=== PATIENT | female | born 1995 | race American Indian/Alaskan Native ===

== ENCOUNTER 2019-01-02 09:07 | Emergency (ER) | payer OTHER ==
[2019-01-02 09:42] VITALS: BP 148/86
--- NOTE | 2019-01-02 11:05 | Emergency Department Report ---
HPI - General Chief Complaint: Headache Time Seen by Provider: 01/02/19 10:38 - HPI HPI: This is a 23-year-old female with no prior medical history who presents to ED complaining of right foot swelling redness and pain. Patient states that she had a tattoo done last Tuesday. Patient states about 34 days ago started to get re.. She denies fevers/chills/nausea vomiting. She also states that she has been given throbbing clot/18 temperature headaches for the past week. His trauma, loss of consciousness or any injuries to the head. She denies blurry vision or visual changes. ED Past Medical Hx - Past Medical History Previous Medical History?: Yes Hx Diabetes: Yes (Pt denies.) - Surgical History Past Surgical History?: Yes Additional Surgical History: cleft pallet,tonsillectomy - Social History Smoking Status: Never Smoker Substance Use Type: None - Medications Home Medications: Home Medications Medication Instructions Recorded Confirmed Last Taken Type Cyclobenzaprine [Flexeril] 10 mg PO QHS PRN #10 tablet 08/14/18 Unknown Rx Ibuprofen [Motrin] 600 mg PO Q8H PRN #20 tablet 08/14/18 Unknown Rx Butalb/Acetamin/Caff 50-325-40 1 tab PO Q8HR PRN #20 tablet 01/02/19 Unknown Rx [Fioricet] Clindamycin [Clindamycin CAP] 300 mg PO Q8H #21 cap 01/02/19 Unknown Rx Ibuprofen [Motrin] 800 mg PO Q8HR #30 tablet 01/02/19 Unknown Rx Neomycin/Bacitracin/Polymyxinb 1 applic TP TID #1 oint...g. 01/02/19 Unknown Rx [Triple Antibiotic Ointment] ED Review of Systems ROS: Stated complaint: RT FOOT SWOLLEN/PAIN Other details as noted in HPI Comment: All other systems reviewed and negative Physical Exam - Physical Exam Vital Signs: Vital Signs 01/02/19 09:41 Temperature 98.4 F Pulse Rate 79 Respiratory 18 Rate Blood Pressure 148/86 [Right] O2 Sat by Pulse 95 Oximetry Physical Exam: GENERAL: Alert and oriented x3, no apparent distress, Normal Gait, atraumatic. HEAD: Head is normocephalic and a-traumatic. Nontender to palpation EYES: Vision is intact. Extra ocular muscles are intact. Pupils are equal, round, and reactive to light and accommodation. EARS: symetrical, atraumatic, non tender, ear canal clear and moderate cerumen, tympanic membrance non inflamed. gross auditory nml bilaterally. NECK: Supple. Non edematous, No carotid bruits. No lymphadenopathy or thyromegaly. No C-spine tenderness LUNGS: Symetrical with respiration, No wheezing, no rales or crackles, CTAB. HEART: S1, S2 present, regular rate and rhythm without murmur, no rubs, no gallops. Non tender to palpation EXTREMITIES/MUSCULOSKELETAL: No cyanosis, clubbing, rash, lesions or edema. Full ROM bilaterally. UE/LE Pulses 2+ bilaterally. LE and UE 5+ strength bilaterally, straight leg raise negative bilaterally Talk to present on the right anterior foot, moderate swelling and redness around the tattoo, some peeling noted. NEUROLOGIC: The patient is cooperative with no focal neurologic deficits. Cranial nerves II through XII are grossly intact. Normal speech. Normal sensation in bilateral upper and lower extremities, No loss of sensation, No facial droop. PSYCHIATRIC: Mood is congruent with affect, denies suicidal or homicidal ideations. SKIN: Warm and dry, No lesions, No ulceration or induration present. ED Course Vital Signs 01/02/19 09:41 Temperature 98.4 F Pulse Rate 79 Respiratory 18 Rate Blood Pressure 148/86 [Right] O2 Sat by Pulse 95 Oximetry ED Medical Decision Making - Medical Decision Making 3-year-old female presents with possible skin tattoo infection of the right foot. Discuss with patient that I'll be discharging her home with some antibiotics topically and orally. Discussed with the patient to keep the area dry as much as she can. Discussed cold compress as needed for swelling. Medicines are normal patient is in no acute distress. Critical care attestation.: If time is entered above; I have spent that time in minutes in the direct care of this critically ill patient, excluding procedure time. ED Disposition Clinical Impression: Cellulitis of foot, right, Headache Disposition: - TO HOME OR SELFCARE Is pt being admited?: No Does the pt Need Aspirin: No Condition: Stable Instructions: Cellulitis (ED), Migraine Headache (ED), Tension Headache (ED), Abrasion (ED) Additional Instructions: Make sure to follow up with the primary care physician as discussed. Take all your medications as you've been prescribed. If you have any worsening symptoms or develop new symptoms please return to ED immediately. Prescriptions: Clindamycin [Clindamycin CAP] 300 mg PO Q8H #21 cap Butalb/Acetamin/Caff 50-325-40 [Fioricet] 1 tab PO Q8HR PRN #20 tablet PRN Reason: Headache Ibuprofen [Motrin] 800 mg PO Q8HR #30 tablet Neomycin/Bacitracin/Polymyxinb [Triple Antibiotic Ointment] 1 applic TP TID #1 oint...g. Referrals: GARY GILLIAM MD [Primary Care Provider] - 3-5 Days Forms: Work/School Release Form(ED) Time of Disposition: 11:07
== END 2019-01-02 11:34 | disposition home or self-care (01) ==
LOC: ED 09:07
DX: L03.115 Cellulitis of right lower limb (principal); R51 Headache; E11.9 Type 2 diabetes mellitus without complications; Z90.89 Acquired absence of other organs
CPT/HCPCS: 99283

== ENCOUNTER 2019-01-15 03:24 | Emergency (ER) | payer OTHER ==
--- NOTE | 2019-01-15 08:24 | Emergency Department Report ---
- General Chief complaint: Extremity Injury, Lower Stated complaint: FOOT PAIN Time Seen by Provider: 01/15/19 08:04 Source: patient Mode of arrival: Ambulatory Limitations: No Limitations - History of Present Illness Initial comments: Patient is a 23-year-old black female who had a tattoo placed on the right dorsum of the foot approximately 3 weeks ago. Patient states that 4 days after the tattoo was placed she started getting some redness surrounding the tattoo. Patient was seen here 2 weeks ago and was started on clindamycin. Patient states that while she was on the antibiotics or redness was subsiding as well as her pain. Patient has been off of antibiotic for approximately week and states that over the last 5-6 days her swelling redness has worsened. Patient denies any fevers chills nausea vomiting. Patient states pain is 8 out of 10 in severity, however she is able to bear weight. - Related Data Previous Rx's Medication Instructions Recorded Last Taken Type Cyclobenzaprine [Flexeril] 10 mg PO QHS PRN #10 tablet 08/14/18 Unknown Rx Ibuprofen [Motrin] 600 mg PO Q8H PRN #20 tablet 08/14/18 Unknown Rx Butalb/Acetamin/Caff 50-325-40 1 tab PO Q8HR PRN #20 tablet 01/02/19 Unknown Rx [Fioricet] Clindamycin [Clindamycin CAP] 300 mg PO Q8H #21 cap 01/02/19 Unknown Rx Ibuprofen [Motrin] 800 mg PO Q8HR #30 tablet 01/02/19 Unknown Rx Neomycin/Bacitracin/Polymyxinb 1 applic TP TID #1 oint...g. 01/02/19 Unknown Rx [Triple Antibiotic Ointment] Amoxicillin/Potassium Clav 1 each PO BID #14 tablet 01/15/19 Unknown Rx [Augmentin 875-125 Tablet] Clindamycin [Clindamycin CAP] 300 mg PO Q8H #21 cap 01/15/19 Unknown Rx HYDROcodone/ACETAMINOPHEN 1 each PO Q6HR PRN #12 tablet 01/15/19 Unknown Rx [Hydrocodone-Acetamin 5-325 mg] Ibuprofen [Ibu] 800 mg PO Q8H PRN #20 tablet 01/15/19 Unknown Rx Allergies Allergy/AdvReac Type Severity Reaction Status Date / Time No Known Allergies Allergy Verified 01/02/19 09:40 Abscess Boil HPI - HPI Chief Complaint: Extremity Injury, Lower Stated Complaint: FOOT PAIN Time Seen by Provider: 01/15/19 08:04 Home Medications: Previous Rx's Medication Instructions Recorded Last Taken Type Cyclobenzaprine [Flexeril] 10 mg PO QHS PRN #10 tablet 08/14/18 Unknown Rx Ibuprofen [Motrin] 600 mg PO Q8H PRN #20 tablet 08/14/18 Unknown Rx Butalb/Acetamin/Caff 50-325-40 1 tab PO Q8HR PRN #20 tablet 01/02/19 Unknown Rx [Fioricet] Clindamycin [Clindamycin CAP] 300 mg PO Q8H #21 cap 01/02/19 Unknown Rx Ibuprofen [Motrin] 800 mg PO Q8HR #30 tablet 01/02/19 Unknown Rx Neomycin/Bacitracin/Polymyxinb 1 applic TP TID #1 oint...g. 01/02/19 Unknown Rx [Triple Antibiotic Ointment] Amoxicillin/Potassium Clav 1 each PO BID #14 tablet 01/15/19 Unknown Rx [Augmentin 875-125 Tablet] Clindamycin [Clindamycin CAP] 300 mg PO Q8H #21 cap 01/15/19 Unknown Rx HYDROcodone/ACETAMINOPHEN 1 each PO Q6HR PRN #12 tablet 01/15/19 Unknown Rx [Hydrocodone-Acetamin 5-325 mg] Ibuprofen [Ibu] 800 mg PO Q8H PRN #20 tablet 01/15/19 Unknown Rx Allergies/Adverse Reactions: Allergies Allergy/AdvReac Type Severity Reaction Status Date / Time No Known Allergies Allergy Verified 01/02/19 09:40 ED Review of Systems ROS: Stated complaint: FOOT PAIN Other details as noted in HPI Comment: All other systems reviewed and negative ED Past Medical Hx - Past Medical History Previous Medical History?: Yes Hx Diabetes: Yes (Not taking meds) - Surgical History Past Surgical History?: Yes Additional Surgical History: cleft pallet,tonsillectomy - Social History Smoking Status: Never Smoker Substance Use Type: None - Medications Home Medications: Home Medications Medication Instructions Recorded Confirmed Last Taken Type Cyclobenzaprine [Flexeril] 10 mg PO QHS PRN #10 tablet 08/14/18 Unknown Rx Ibuprofen [Motrin] 600 mg PO Q8H PRN #20 tablet 08/14/18 Unknown Rx Butalb/Acetamin/Caff 50-325-40 1 tab PO Q8HR PRN #20 tablet 01/02/19 Unknown Rx [Fioricet] Clindamycin [Clindamycin CAP] 300 mg PO Q8H #21 cap 01/02/19 Unknown Rx Ibuprofen [Motrin] 800 mg PO Q8HR #30 tablet 01/02/19 Unknown Rx Neomycin/Bacitracin/Polymyxinb 1 applic TP TID #1 oint...g. 01/02/19 Unknown Rx [Triple Antibiotic Ointment] Amoxicillin/Potassium Clav 1 each PO BID #14 tablet 01/15/19 Unknown Rx [Augmentin 875-125 Tablet] Clindamycin [Clindamycin CAP] 300 mg PO Q8H #21 cap 01/15/19 Unknown Rx HYDROcodone/ACETAMINOPHEN 1 each PO Q6HR PRN #12 tablet 01/15/19 Unknown Rx [Hydrocodone-Acetamin 5-325 mg] Ibuprofen [Ibu] 800 mg PO Q8H PRN #20 tablet 01/15/19 Unknown Rx ED Physical Exam - General Limitations: No Limitations General appearance: alert, in no apparent distress - Head Head exam: Present: atraumatic, normocephalic - Eye Eye exam: Present: normal appearance, PERRL, EOMI - ENT ENT exam: Present: mucous membranes moist - Neck Neck exam: Present: normal inspection - Respiratory Respiratory exam: Present: normal lung sounds bilaterally. Absent: respiratory distress, wheezes, rales, rhonchi - Cardiovascular Cardiovascular Exam: Present: regular rate, normal rhythm. Absent: systolic murmur, diastolic murmur, rubs, gallop - GI/Abdominal GI/Abdominal exam: Present: soft, normal bowel sounds. Absent: distended, tenderness, guarding, rebound - Extremities Exam Extremities exam: Present: normal inspection, other (patient has erythema within and surrounding a large tattoo on the dorsum of the right foot. There is subsequent edema to the foot and ankle. There is no pain in the plantar surface of the foot. She has full range of motion of her toes. Patient has intact dorsalis pedal pulse.) - Back Exam Back exam: Present: normal inspection - Neurological Exam Neurological exam: Present: alert, oriented X3 - Psychiatric Psychiatric exam: Present: normal affect, normal mood - Skin Skin exam: Present: warm, dry, intact, normal color. Absent: rash ED Course Vital Signs 01/15/19 01/15/19 03:27 03:28 Temperature 97.6 F 97.6 F Pulse Rate 86 83 Respiratory 18 18 Rate Blood Pressure 144/77 144/77 O2 Sat by Pulse 98 98 Oximetry ED Medical Decision Making - Medical Decision Making The patient's symptoms were improving on clindamycin the patient be restarted on clindamycin. Because of worry of some resistance patient also be given Augmentin as well. Patient will be followed up with infectious disease as needed. Condition discharge home. Critical care attestation.: If time is entered above; I have spent that time in minutes in the direct care of this critically ill patient, excluding procedure time. ED Disposition Clinical Impression: Cellulitis of foot, right Disposition: DC-01 TO HOME OR SELFCARE Is pt being admited?: No Does the pt Need Aspirin: No Condition: Stable Instructions: Cellulitis (ED) Referrals: JOSE MANUEL ESTRADARYANNEMIFF[facility]OWN MD DELILAH [Primary Care Provider] - 3-5 Days JANETT SINGLETON MD [Staff Physician] - 3-5 Days Time of Disposition: 08:28
[2019-01-15 09:28] VITALS: BP 132/70
== END 2019-01-15 08:51 | disposition home or self-care (01) ==
LOC: ED 03:24
DX: L03.115 Cellulitis of right lower limb (principal); E11.9 Type 2 diabetes mellitus without complications; Z90.89 Acquired absence of other organs; Z98.890 Other specified postprocedural states

== ENCOUNTER 2019-06-28 08:57 | Emergency (ER) | payer OTHER ==
[2019-06-28 09:05] VITALS: BP 153/94
[2019-06-28] MEDS ORDERED: NACL 0.9% 1000 ML 1,000 ML IV ONE ×2 (09:49)
[2019-06-28 10:16] LABS: Basophils % (Auto) 0.5 % (0.0-1.8); Eosinophils # (Auto) 0.1 K/mm3 (0.0-0.4); Hematocrit 46.1 % (30.3-42.9); Hemoglobin 15.8 gm/dl (10.1-14.3); Lymphocytes # (Auto) 2.2 K/mm3 (1.2-5.4); Lymphocytes % (Auto) 31.2 % (13.4-35.0); Mean Corpuscular HGB Conc 34 % (30-34); Mean Corpuscular Volume 93 fl (79-97); Monocytes # (Auto) 0.4 K/mm3 (0.0-0.8); Monocytes % (Auto) 5.7 % (0.0-7.3); Platelet Count 349 K/mm3 (140-440); Red Blood Count 4.94 M/mm3 (3.65-5.03); Red Cell Distribution Width 13.5 % (13.2-15.2)
[2019-06-28 10:31] LABS: BUN/Creatinine Ratio 23; Blood Urea Nitrogen 14 mg/dL (7-17); Calcium 8.8 mg/dL (8.4-10.2); Hemolysis Index 12
[2019-06-28 12:26] LABS: Bilirubin,Urine NEG (Negative); Blood,Urine NEG (Negative); Color,Urine Yellow (Yellow); Protein,Urine <15 mg/dL mg/dL (Negative); Urobilinogen,Urine < 2.0 mg/dL (<2.0)
[2019-06-28 12:29] LABS: HCG Qualitative,Urine Negative (Negative)
[2019-06-28] MEDS ORDERED: TORADOL IV ONE (12:33)
--- NOTE | 2019-06-28 12:42 | Emergency Department Report ---
ED General Adult HPI - General Chief complaint: Hyperglycemia Stated complaint: HBS/BACK PAIN Time Seen by Provider: 06/28/19 09:38 Source: patient Mode of arrival: Ambulatory Limitations: No Limitations - History of Present Illness Initial comments: Patient is a 24-year-old female with a past medical history of type 2 diabetes who is been off of her medications for approximately 2 years was presenting with hypoglycemia. Patient was taken off of medications because she had become diet controlled with her diabetes. Patient states over the last week or so she's noticed some increased thirst and urination. The patient denies dysuria. Patient states she took her blood sugar was elevated. Patient denies abdominal pain at this time. Location: back Radiation: non-radiation Severity scale (0 -10): 4 Quality: aching Consistency: constant (. Patient believes this is the cause of her lower back pain. She denies fevers and chills.) - Related Data Previous Rx's Medication Instructions Recorded Last Taken Type Cyclobenzaprine [Flexeril] 10 mg PO QHS PRN #10 tablet 08/14/18 Unknown Rx Ibuprofen [Motrin] 600 mg PO Q8H PRN #20 tablet 08/14/18 Unknown Rx Butalb/Acetamin/Caff 50-325-40 1 tab PO Q8HR PRN #20 tablet 01/02/19 Unknown Rx [Fioricet] Clindamycin [Clindamycin CAP] 300 mg PO Q8H #21 cap 01/02/19 Unknown Rx Ibuprofen [Motrin] 800 mg PO Q8HR #30 tablet 01/02/19 Unknown Rx Neomycin/Bacitracin/Polymyxinb 1 applic TP TID #1 oint...g. 01/02/19 Unknown Rx [Triple Antibiotic Ointment] Amoxicillin/Potassium Clav 1 each PO BID #14 tablet 01/15/19 Unknown Rx [Augmentin 875-125 Tablet] Clindamycin [Clindamycin CAP] 300 mg PO Q8H #21 cap 01/15/19 Unknown Rx HYDROcodone/ACETAMINOPHEN 1 each PO Q6HR PRN #12 tablet 01/15/19 Unknown Rx [Hydrocodone-Acetamin 5-325 mg] Ibuprofen [Ibu] 800 mg PO Q8H PRN #20 tablet 01/15/19 Unknown Rx Ibuprofen [Motrin 600 MG tab] 600 mg PO Q8H PRN #20 tablet 06/28/19 Unknown Rx metFORMIN [Glucophage] 500 mg PO BID #60 tablet 06/28/19 Unknown Rx methOCARBAMOL [Robaxin TAB] 500 mg PO Q6H PRN #14 tablet 06/28/19 Unknown Rx Allergies Allergy/AdvReac Type Severity Reaction Status Date / Time No Known Allergies Allergy Verified 06/28/19 08:58 ED Review of Systems ROS: Stated complaint: HBS/BACK PAIN Other details as noted in HPI Comment: All other systems reviewed and negative ED Past Medical Hx - Past Medical History Hx Diabetes: Yes (Not taking meds) - Surgical History Additional Surgical History: cleft pallet,tonsillectomy - Social History Smoking Status: Never Smoker Substance Use Type: None - Medications Home Medications: Home Medications Medication Instructions Recorded Confirmed Last Taken Type Cyclobenzaprine [Flexeril] 10 mg PO QHS PRN #10 tablet 08/14/18 Unknown Rx Ibuprofen [Motrin] 600 mg PO Q8H PRN #20 tablet 08/14/18 Unknown Rx Butalb/Acetamin/Caff 50-325-40 1 tab PO Q8HR PRN #20 tablet 01/02/19 Unknown Rx [Fioricet] Clindamycin [Clindamycin CAP] 300 mg PO Q8H #21 cap 01/02/19 Unknown Rx Ibuprofen [Motrin] 800 mg PO Q8HR #30 tablet 01/02/19 Unknown Rx Neomycin/Bacitracin/Polymyxinb 1 applic TP TID #1 oint...g. 01/02/19 Unknown Rx [Triple Antibiotic Ointment] Amoxicillin/Potassium Clav 1 each PO BID #14 tablet 01/15/19 Unknown Rx [Augmentin 875-125 Tablet] Clindamycin [Clindamycin CAP] 300 mg PO Q8H #21 cap 01/15/19 Unknown Rx HYDROcodone/ACETAMINOPHEN 1 each PO Q6HR PRN #12 tablet 01/15/19 Unknown Rx [Hydrocodone-Acetamin 5-325 mg] Ibuprofen [Ibu] 800 mg PO Q8H PRN #20 tablet 01/15/19 Unknown Rx Ibuprofen [Motrin 600 MG tab] 600 mg PO Q8H PRN #20 tablet 06/28/19 Unknown Rx metFORMIN [Glucophage] 500 mg PO BID #60 tablet 06/28/19 Unknown Rx methOCARBAMOL [Robaxin TAB] 500 mg PO Q6H PRN #14 tablet 06/28/19 Unknown Rx ED Physical Exam - General Limitations: No Limitations General appearance: alert, in no apparent distress - Head Head exam: Present: atraumatic, normocephalic - Eye Eye exam: Present: normal appearance - ENT ENT exam: Present: mucous membranes moist - Neck Neck exam: Present: normal inspection - Respiratory Respiratory exam: Present: normal lung sounds bilaterally. Absent: respiratory distress, wheezes, rales, rhonchi, stridor - Cardiovascular Cardiovascular Exam: Present: regular rate, normal rhythm, normal heart sounds. Absent: systolic murmur, diastolic murmur, rubs, gallop - GI/Abdominal GI/Abdominal exam: Present: soft, normal bowel sounds. Absent: distended, tenderness, guarding, rebound - Extremities Exam Extremities exam: Present: normal inspection - Back Exam Back exam: Present: normal inspection - Neurological Exam Neurological exam: Present: alert, oriented X3 - Psychiatric Psychiatric exam: Present: normal affect, normal mood - Skin Skin exam: Present: warm, dry, intact, normal color. Absent: rash ED Course Vital Signs 06/28/19 09:02 Temperature 98.0 F Pulse Rate 85 Respiratory 16 Rate Blood Pressure 153/94 O2 Sat by Pulse 98 Oximetry ED Medical Decision Making - Lab Data Result diagrams: 06/28/19 09:54 06/28/19 09:54 Lab Results 06/28/19 06/28/19 06/28/19 Range/Units 09:10 09:54 09:54 WBC 7.1 (4.5-11.0) K/mm3 RBC 4.94 (3.65-5.03) M/mm3 Hgb 15.8 H (10.1-14.3) gm/dl Hct 46.1 H (30.3-42.9) % MCV 93 (79-97) fl MCH 32 (28-32) pg MCHC 34 (30-34) % RDW 13.5 (13.2-15.2) % Plt Count 349 (140-440) K/mm3 Lymph % (Auto) 31.2 (13.4-35.0) % [place] % (Auto) 5.7 (0.0-7.3) % Eos % (Auto) 1.0 (0.0-4.3) % Baso % (Auto) 0.5 (0.0-1.8) % Lymph # 2.2 (1.2-5.4) K/mm3 [place] # 0.4 (0.0-0.8) K/mm3 Eos # 0.1 (0.0-0.4) K/mm3 Baso # 0.0 (0.0-0.1) K/mm3 Seg Neutrophils % 61.6 (40.0-70.0) % Seg Neutrophils # 4.4 (1.8-7.7) K/mm3 Sodium 135 L (137-145) mmol/L Potassium 4.3 (3.6-5.0) mmol/L Chloride 97.8 L (98-107) mmol/L Carbon Dioxide 22 (22-30) mmol/L Anion Gap 20 mmol/L BUN 14 (7-17) mg/dL Creatinine 0.6 L (0.7-1.2) mg/dL Estimated GFR > 60 ml/min BUN/Creatinine Ratio 23 % Glucose 347 H (65-100) mg/dL POC Glucose 311 H (70-105) Calcium 8.8 (8.4-10.2) mg/dL Urine Color (Yellow) Urine Turbidity (Clear) Urine pH (5.0-7.0) Ur Specific [place] (1.003-1.030) Urine Protein (Negative) mg/dL Urine Glucose (UA) (Negative) mg/dL Urine Ketones (Negative) mg/dL Urine Blood (Negative) Urine Nitrite (Negative) Urine Bilirubin (Negative) Urine Urobilinogen (<2.0) mg/dL Ur Leukocyte Esterase (Negative) Urine WBC (Auto) (0.0-6.0) /HPF Urine RBC (Auto) (0.0-6.0) /HPF U Epithel Cells (Auto) (0-13.0) /HPF Urine HCG, Qual (Negative) 06/28/19 06/28/19 Range/Units 11:32 11:57 WBC (4.5-11.0) K/mm3 RBC (3.65-5.03) M/mm3 Hgb (10.1-14.3) gm/dl Hct (30.3-42.9) % MCV (79-97) fl MCH (28-32) pg MCHC (30-34) % RDW (13.2-15.2) % Plt Count (140-440) K/mm3 Lymph % (Auto) (13.4-35.0) % [place] % (Auto) (0.0-7.3) % Eos % (Auto) (0.0-4.3) % Baso % (Auto) (0.0-1.8) % Lymph # (1.2-5.4) K/mm3 [place] # (0.0-0.8) K/mm3 Eos # (0.0-0.4) K/mm3 Baso # (0.0-0.1) K/mm3 Seg Neutrophils % (40.0-70.0) % Seg Neutrophils # (1.8-7.7) K/mm3 Sodium (137-145) mmol/L Potassium (3.6-5.0) mmol/L Chloride (98-107) mmol/L Carbon Dioxide (22-30) mmol/L Anion Gap mmol/L BUN (7-17) mg/dL Creatinine (0.7-1.2) mg/dL Estimated GFR ml/min BUN/Creatinine Ratio % Glucose (65-100) mg/dL POC Glucose 267 H (70-105) Calcium (8.4-10.2) mg/dL Urine Color Yellow (Yellow) Urine Turbidity Clear (Clear) Urine pH 5.0 (5.0-7.0) Ur Specific [place] 1.030 (1.003-1.030) Urine Protein <15 mg/dl (Negative) mg/dL Urine Glucose (UA) >=500 (Negative) mg/dL Urine Ketones Tr (Negative) mg/dL Urine Blood Neg (Negative) Urine Nitrite Neg (Negative) Urine Bilirubin Neg (Negative) Urine Urobilinogen < 2.0 (<2.0) mg/dL Ur Leukocyte Esterase Sm (Negative) Urine WBC (Auto) 1.0 (0.0-6.0) /HPF Urine RBC (Auto) 2.0 (0.0-6.0) /HPF U Epithel Cells (Auto) 3.0 (0-13.0) /HPF Urine HCG, Qual Negative (Negative) - Medical Decision Making Patient's laboratory studies are inconsistent with DKA. Patient was hydrated and patient will be restarted on her metformin given primary care follow-up. Critical care attestation.: If time is entered above; I have spent that time in minutes in the direct care of this critically ill patient, excluding procedure time. ED Disposition Clinical Impression: Hyperglycemia, Lumbar strain Disposition: DC-01 TO HOME OR SELFCARE Is pt being admited?: No Does the pt Need Aspirin: No Condition: Stable Instructions: Muscle Strain (ED), Diabetic Hyperglycemia (ED) Referrals: JOAQUÍN MACIAS DO [Staff Physician] - 3-5 Days [facility] DELILAH [Referring] - 3-5 Days Time of Disposition: 12:42
== END 2019-06-28 13:15 | disposition home or self-care (01) ==
LOC: ED 08:57
DX: S39.012A Strain of muscle, fascia and tendon of lower back, initial encounter (principal); E11.65 Type 2 diabetes mellitus with hyperglycemia; Z79.899 Other long term (current) drug therapy; Z79.1 Long term (current) use of non-steroidal anti-inflammatories (NSAID); Z90.89 Acquired absence of other organs; Z79.84 Long term (current) use of oral hypoglycemic drugs; X58.XXXA Exposure to other specified factors, initial encounter; Y93.89 Activity, other specified; Y92.89 Other specified places as the place of occurrence of the external cause; Y99.8 Other external cause status
CPT/HCPCS: 36415; 80048; 81001; 81025; 82962; 85025; 96361; 96374; 99283; J1885; J7030

== ENCOUNTER 2019-11-12 12:20 | Emergency (ER) | payer SELFPAY ==
[2019-11-12 14:17] VITALS: BP 173/94
--- NOTE | 2019-11-12 14:23 | Emergency Department Report ---
ED Eye Problem HPI - General Chief complaint: Eye Problems Stated complaint: LEFT EYE SWOLLEN Time Seen by Provider: 11/12/19 14:17 Source: patient Mode of arrival: Ambulatory Limitations: No Limitations - History of Present Illness Initial comments: This is a 24-year-old female nontoxic well in appearance with no signs of distress presents to the ED with upper eye lid some swelling. Patient denies any eye pain or foreign body sensation. Denies any pain in the area. Denies any eye redness or discharge or crusting. Patient denies any other symptoms. Denies any blurry vision or visual changes. Denies any fever, chills, headache, nausea, vomiting, chest pain or SOB. Denies any other complaints. Denies any allergies. -: This morning Location: left eye If Injury: none Severity: mild Severity scale (0 -10): 0 Associated Symptoms: none. denies: headache, neck pain, nausea/vomiting, cough, rhinorrhea, fever, shortness of breath - Related Data Previous Rx's Medication Instructions Recorded Last Taken Type Cyclobenzaprine [Flexeril] 10 mg PO QHS PRN #10 tablet 08/14/18 Unknown Rx Ibuprofen [Motrin] 600 mg PO Q8H PRN #20 tablet 08/14/18 Unknown Rx Butalb/Acetamin/Caff 50-325-40 1 tab PO Q8HR PRN #20 tablet 01/02/19 Unknown Rx [Fioricet] Clindamycin [Clindamycin CAP] 300 mg PO Q8H #21 cap 01/02/19 Unknown Rx Ibuprofen [Motrin] 800 mg PO Q8HR #30 tablet 01/02/19 Unknown Rx Neomycin/Bacitracin/Polymyxinb 1 applic TP TID #1 oint...g. 01/02/19 Unknown Rx [Triple Antibiotic Ointment] Amoxicillin/Potassium Clav 1 each PO BID #14 tablet 01/15/19 Unknown Rx [Augmentin 875-125 Tablet] Clindamycin [Clindamycin CAP] 300 mg PO Q8H #21 cap 01/15/19 Unknown Rx HYDROcodone/ACETAMINOPHEN 1 each PO Q6HR PRN #12 tablet 01/15/19 Unknown Rx [Hydrocodone-Acetamin 5-325 mg] Ibuprofen [Ibu] 800 mg PO Q8H PRN #20 tablet 01/15/19 Unknown Rx Ibuprofen [Motrin 600 MG tab] 600 mg PO Q8H PRN #20 tablet 06/28/19 Unknown Rx metFORMIN [Glucophage] 500 mg PO BID #60 tablet 06/28/19 Unknown Rx methOCARBAMOL [Robaxin TAB] 500 mg PO Q6H PRN #14 tablet 06/28/19 Unknown Rx Allergies Allergy/AdvReac Type Severity Reaction Status Date / Time No Known Allergies Allergy Verified 06/28/19 08:58 ED Review of Systems ROS: Stated complaint: LEFT EYE SWOLLEN Other details as noted in HPI Constitutional: denies: chills, fever Eyes: denies: eye pain, eye discharge, vision change ENT: denies: ear pain, throat pain Respiratory: denies: cough, shortness of breath, wheezing Cardiovascular: denies: chest pain, palpitations Endocrine: no symptoms reported Gastrointestinal: denies: abdominal pain, nausea, diarrhea Genitourinary: denies: urgency, dysuria, discharge Musculoskeletal: denies: back pain, joint swelling, arthralgia Skin: denies: rash, lesions Neurological: denies: headache, weakness, paresthesias Psychiatric: denies: anxiety, depression Hematological/Lymphatic: denies: easy bleeding, easy bruising ED Past Medical Hx - Past Medical History Previous Medical History?: Yes Hx Diabetes: Yes - Surgical History Past Surgical History?: Yes Additional Surgical History: cleft pallet,tonsillectomy - Social History Smoking Status: Never Smoker Substance Use Type: None - Medications Home Medications: Home Medications Medication Instructions Recorded Confirmed Last Taken Type Cyclobenzaprine [Flexeril] 10 mg PO QHS PRN #10 tablet 08/14/18 Unknown Rx Ibuprofen [Motrin] 600 mg PO Q8H PRN #20 tablet 08/14/18 Unknown Rx Butalb/Acetamin/Caff 50-325-40 1 tab PO Q8HR PRN #20 tablet 01/02/19 Unknown Rx [Fioricet] Clindamycin [Clindamycin CAP] 300 mg PO Q8H #21 cap 01/02/19 Unknown Rx Ibuprofen [Motrin] 800 mg PO Q8HR #30 tablet 01/02/19 Unknown Rx Neomycin/Bacitracin/Polymyxinb 1 applic TP TID #1 oint...g. 01/02/19 Unknown Rx [Triple Antibiotic Ointment] Amoxicillin/Potassium Clav 1 each PO BID #14 tablet 01/15/19 Unknown Rx [Augmentin 875-125 Tablet] Clindamycin [Clindamycin CAP] 300 mg PO Q8H #21 cap 01/15/19 Unknown Rx HYDROcodone/ACETAMINOPHEN 1 each PO Q6HR PRN #12 tablet 01/15/19 Unknown Rx [Hydrocodone-Acetamin 5-325 mg] Ibuprofen [Ibu] 800 mg PO Q8H PRN #20 tablet 01/15/19 Unknown Rx Ibuprofen [Motrin 600 MG tab] 600 mg PO Q8H PRN #20 tablet 06/28/19 Unknown Rx metFORMIN [Glucophage] 500 mg PO BID #60 tablet 06/28/19 Unknown Rx methOCARBAMOL [Robaxin TAB] 500 mg PO Q6H PRN #14 tablet 06/28/19 Unknown Rx ED Physical Exam - General Limitations: No Limitations General appearance: alert, in no apparent distress - Head Head exam: Present: atraumatic, normocephalic - Eye Eye exam: Present: normal appearance, PERRL, EOMI, other (slight swelling to upper eyelid). Absent: scleral icterus, conjunctival injection, nystagmus, periorbital swelling, periorbital tenderness Pupils: Present: normal accommodation. Absent: irregular, unequal, miosis, mydriatic ED Course Vital Signs 11/12/19 14:15 Temperature 98.7 F Pulse Rate 94 H Respiratory 18 Rate Blood Pressure 173/94 O2 Sat by Pulse 100 Oximetry - Reevaluation(s) Reevaluation #1: 11/12/19 14:20 Patient is speaking in full sentences with no signs of distress noted. ED Medical Decision Making - Medical Decision Making Was educated on Stye. Patient was instructed to Follow-up with a exhibitions and collections manager doctor in 3-5 days or if symptoms worsen and continue return to emergency room as soon as possible. At time of discharge, the patient does not seem toxic or ill in appearance. No acute signs of distress noted. Patient agrees to discharge treatment plan of care. No further questions noted by the patient. Critical care attestation.: If time is entered above; I have spent that time in minutes in the direct care of this critically ill patient, excluding procedure time. ED Disposition Clinical Impression: Stye Qualifiers: Laterality: left Eyelid: upper Qualified Code(s): H00.014 - Hordeolum externum left upper eyelid Disposition: MED SCREENING EXAM-LEFT Is pt being admited?: No Does the pt Need Aspirin: No Condition: Stable Instructions: Shira (ED) Additional Instructions: Follow-up with a exhibitions and collections manager doctor in 3-5 days or if symptoms worsen and continue return to emergency room as soon as possible. Referrals: PRIMARY CARE, [Referring] - 3-5 Days BINH MCCALLUM MD [Staff Physician] - 3-5 Days Forms: Work/School Release Form(ED)
== END 2019-11-12 14:30 | disposition left against medical advice (07) ==
LOC: ED 12:20
DX: H00.014 Hordeolum externum left upper eyelid (principal); E11.9 Type 2 diabetes mellitus without complications; Z79.1 Long term (current) use of non-steroidal anti-inflammatories (NSAID); Z79.2 Long term (current) use of antibiotics; Z79.899 Other long term (current) drug therapy; Z98.890 Other specified postprocedural states
CPT/HCPCS: 99281

== ENCOUNTER 2020-09-08 00:03 | Emergency (ER) | payer SELFPAY ==
[2020-09-08 00:11] VITALS: BP 153/92
[2020-09-08] MEDS ORDERED: metroNIDAZOLE 500 MG TAB PO ONE (01:28)
[2020-09-08] MEDS ORDERED: AZITHROMYCIN 250 MG TAB PO ONE (01:28)
[2020-09-08] MEDS ORDERED: LIDOCAINE-MPF (1%) 10 MG/1 ML VIAL 5 ML INFILTRATI ONE (01:28)
--- NOTE | 2020-09-08 01:35 | Emergency Department Report ---
ED Abdominal Pain HPI - General Chief Complaint: Abdominal Pain Stated Complaint: ABDOMINAL PAIN Time Seen by Provider: 09/08/20 01:22 Source: patient Mode of arrival: Ambulatory Limitations: No Limitations - History of Present Illness Initial Comments: Patient is a 25-year-old F [place] female who is presenting with some lower abdominal discomfort. Pain is this is a 9 out of 10 but the patient is very calm and comfortable. States symptoms of been present for approximately 1 week. She denies dysuria or urinary frequency. Denies abnormal vaginal bleeding or discharge. States that she found out yesterday that her significant other have been sexually active with other people and she is worried about STDs as the cause of her lower abdominal pain. - Related Data Previous Rx's Medication Instructions Recorded Last Taken Type Cyclobenzaprine [Flexeril] 10 mg PO QHS PRN #10 tablet 08/14/18 Unknown Rx Ibuprofen [Motrin] 600 mg PO Q8H PRN #20 tablet 08/14/18 Unknown Rx Butalb/Acetamin/Caff 50-325-40 1 tab PO Q8HR PRN #20 tablet 01/02/19 Unknown Rx [Fioricet] Clindamycin [Clindamycin CAP] 300 mg PO Q8H #21 cap 01/02/19 Unknown Rx Ibuprofen [Motrin] 800 mg PO Q8HR #30 tablet 01/02/19 Unknown Rx Neomycin/Bacitracin/Polymyxinb 1 applic TP TID #1 oint...g. 01/02/19 Unknown Rx [Triple Antibiotic Ointment] Amoxicillin/Potassium Clav 1 each PO BID #14 tablet 01/15/19 Unknown Rx [Augmentin 875-125 Tablet] Clindamycin [Clindamycin CAP] 300 mg PO Q8H #21 cap 01/15/19 Unknown Rx HYDROcodone/ACETAMINOPHEN 1 each PO Q6HR PRN #12 tablet 01/15/19 Unknown Rx [Hydrocodone-Acetamin 5-325 mg] Ibuprofen [Ibu] 800 mg PO Q8H PRN #20 tablet 01/15/19 Unknown Rx Ibuprofen [Motrin 600 MG tab] 600 mg PO Q8H PRN #20 tablet 06/28/19 Unknown Rx metFORMIN [Glucophage] 500 mg PO BID #60 tablet 06/28/19 Unknown Rx methOCARBAMOL [Robaxin TAB] 500 mg PO Q6H PRN #14 tablet 06/28/19 Unknown Rx Ibuprofen [Motrin 800 MG tab] 800 mg PO Q8HR PRN #10 tablet 09/08/20 Unknown Rx traMADoL [Ultram] 50 mg PO Q6HR PRN #10 tablet 09/08/20 Unknown Rx Allergies Allergy/AdvReac Type Severity Reaction Status Date / Time No Known Allergies Allergy Verified 06/28/19 08:58 ED Review of Systems ROS: Stated complaint: ABDOMINAL PAIN Other details as noted in HPI Comment: All other systems reviewed and negative ED Past Medical Hx - Past Medical History Previous Medical History?: Yes Hx Diabetes: Yes (Not on meds) - Surgical History Past Surgical History?: Yes Additional Surgical History: cleft pallet,tonsillectomy - Social History Smoking Status: Never Smoker Substance Use Type: None - Medications Home Medications: Home Medications Medication Instructions Recorded Confirmed Last Taken Type Cyclobenzaprine [Flexeril] 10 mg PO QHS PRN #10 tablet 08/14/18 Unknown Rx Ibuprofen [Motrin] 600 mg PO Q8H PRN #20 tablet 08/14/18 Unknown Rx Butalb/Acetamin/Caff 50-325-40 1 tab PO Q8HR PRN #20 tablet 01/02/19 Unknown Rx [Fioricet] Clindamycin [Clindamycin CAP] 300 mg PO Q8H #21 cap 01/02/19 Unknown Rx Ibuprofen [Motrin] 800 mg PO Q8HR #30 tablet 01/02/19 Unknown Rx Neomycin/Bacitracin/Polymyxinb 1 applic TP TID #1 oint...g. 01/02/19 Unknown Rx [Triple Antibiotic Ointment] Amoxicillin/Potassium Clav 1 each PO BID #14 tablet 01/15/19 Unknown Rx [Augmentin 875-125 Tablet] Clindamycin [Clindamycin CAP] 300 mg PO Q8H #21 cap 01/15/19 Unknown Rx HYDROcodone/ACETAMINOPHEN 1 each PO Q6HR PRN #12 tablet 01/15/19 Unknown Rx [Hydrocodone-Acetamin 5-325 mg] Ibuprofen [Ibu] 800 mg PO Q8H PRN #20 tablet 01/15/19 Unknown Rx Ibuprofen [Motrin 600 MG tab] 600 mg PO Q8H PRN #20 tablet 06/28/19 Unknown Rx metFORMIN [Glucophage] 500 mg PO BID #60 tablet 06/28/19 Unknown Rx methOCARBAMOL [Robaxin TAB] 500 mg PO Q6H PRN #14 tablet 06/28/19 Unknown Rx Ibuprofen [Motrin 800 MG tab] 800 mg PO Q8HR PRN #10 tablet 09/08/20 Unknown Rx traMADoL [Ultram] 50 mg PO Q6HR PRN #10 tablet 09/08/20 Unknown Rx ED Physical Exam - General Limitations: No Limitations General appearance: alert, in no apparent distress - Head Head exam: Present: atraumatic, normocephalic - Eye Eye exam: Present: normal appearance - ENT ENT exam: Present: mucous membranes moist - Neck Neck exam: Present: normal inspection - Respiratory Respiratory exam: Present: normal lung sounds bilaterally. Absent: respiratory distress, wheezes, rales, rhonchi - Cardiovascular Cardiovascular Exam: Present: regular rate, normal rhythm, normal heart sounds. Absent: systolic murmur, diastolic murmur, rubs, gallop - GI/Abdominal GI/Abdominal exam: Present: soft, normal bowel sounds. Absent: distended, tenderness, guarding, rebound, rigid - Extremities Exam Extremities exam: Present: normal inspection - Back Exam Back exam: Present: normal inspection - Neurological Exam Neurological exam: Present: alert, oriented X3 - Psychiatric Psychiatric exam: Present: normal affect, normal mood - Skin Skin exam: Present: warm, dry, intact, normal color. Absent: rash ED Course Vital Signs 09/08/20 00:10 Temperature 98.0 F Pulse Rate 98 H Respiratory 18 Rate Blood Pressure 153/92 O2 Sat by Pulse 96 Oximetry ED Medical Decision Making - Lab Data Lab Results 09/08/20 Range/Units 01:29 Urine Color Colorless (Yellow) Urine Turbidity Clear (Clear) Urine pH 5.0 (5.0-7.0) Ur Specific [place] 1.028 (1.003-1.030) Urine Protein <15 mg/dl (Negative) mg/dL Urine Glucose (UA) >=500 (Negative) mg/dL Urine Ketones Neg (Negative) mg/dL Urine Blood Neg (Negative) Urine Nitrite Neg (Negative) Urine Bilirubin Neg (Negative) Urine Urobilinogen < 2.0 (<2.0) mg/dL Ur Leukocyte Esterase Neg (Negative) Urine WBC (Auto) < 1.0 (0.0-6.0) /HPF Urine RBC (Auto) 1.0 (0.0-6.0) /HPF U Epithel Cells (Auto) 2.0 (0-13.0) /HPF Urine HCG, Qual Negative (Negative) - Medical Decision Making Patient's urinalysis was within normal limits. Is not . Is a good indication to her discomfort is coming from cervix and vagina. Patient prophylactically treated for gonorrhea chlamydia and trichomonas and she can follow-up with medical records for results. Critical care attestation.: If time is entered above; I have spent that time in minutes in the direct care of this critically ill patient, excluding procedure time. ED Disposition Clinical Impression: Exposure to STD, Suprapubic pain, acute Disposition: DC-01 TO HOME OR SELFCARE Is pt being admited?: No Does the pt Need Aspirin: No Condition: Stable Instructions: Abdominal Pain (ED), Pelvic Pain, Female, [id number], Safe Sex, Vaginitis Referrals: AMY CEDILLO JR, MD [Staff Physician] - 3-5 Days Time of Disposition: 02:27
[2020-09-08 01:53] LABS: Bilirubin,Urine NEG (Negative); Blood,Urine NEG (Negative); Color,Urine Colorless (Yellow); Protein,Urine <15 mg/dL mg/dL (Negative); Urobilinogen,Urine < 2.0 mg/dL (<2.0); WBC,Urine < 1.0 /HPF (0.0-6.0)
[2020-09-08 02:12] LABS: HCG Qualitative,Urine Negative (Negative)
== END 2020-09-08 02:37 | disposition home or self-care (01) ==
LOC: ED 00:03
DX: R10.2 Pelvic and perineal pain (principal); E11.9 Type 2 diabetes mellitus without complications; Z79.899 Other long term (current) drug therapy; Z98.890 Other specified postprocedural states; Z20.2 Contact with and (suspected) exposure to infections with a predominantly sexual mode of transmission
CPT/HCPCS: 81001; 81025; 87591; 96372; 99283; J0696

== ENCOUNTER 2021-04-23 19:07 | Emergency (ER) | payer MEDICAID | END 2021-04-23 19:12 | disposition left against medical advice (07) | LOC: ED 19:07 | DX: S91.312A Laceration without foreign body, left foot, initial encounter (principal); Z53.21 Procedure and treatment not carried out due to patient leaving prior to being seen by health care provider; X58.XXXA Exposure to other specified factors, initial encounter; Y93.89 Activity, other specified; Y92.89 Other specified places as the place of occurrence of the external cause; Y99.8 Other external cause status ==

== ENCOUNTER 2022-03-22 04:00 | Emergency (ER) | payer SELFPAY ==
[2022-03-22 07:29] LABS: Bilirubin,Urine NEG (Negative); Blood,Urine NEG (Negative); Color,Urine Straw (Yellow); Protein,Urine <15 mg/dL mg/dL (Negative); Urobilinogen,Urine < 2.0 mg/dL (<2.0)
[2022-03-22 07:31] LABS: RBC,Urine < 1.0 /HPF (0.0-6.0)
[2022-03-22 07:37] LABS: HCG Qualitative,Urine Negative (Negative)
--- NOTE | 2022-03-22 08:45 | Emergency Department Report ---
ED Abdominal Pain HPI - General Chief Complaint: Abdominal Pain Stated Complaint: ABD PAIN/PAINFUL URINATION PUI?: No Time Seen by Provider: 03/22/22 07:49 Source: patient Mode of arrival: Ambulatory Limitations: No Limitations - History of Present Illness Initial Comments: Ms. Wright is a 26-year-old female that comes to the emergency room complaining of nausea vomiting and abdominal pain. She denies having anything like this in the past. Last menstrual period 2 weeks ago. No vaginal bleeding or discharge. No back pain. No fever or chills. No chest pain or shortness of breath. Denies eating anything that may be a culprit. Patient does endorse some dysuria. Patient is a diabetic but she is off her medications. She denies a history of gastroparesis Patient takes no home medications. -: Sudden, hour(s) Location: diffuse Severity scale (0 -10): 0 Improves With: nothing Worsens With: nothing Associated Symptoms: denies other symptoms, nausea, vomiting, dysuria. denies: diarrhea, fever, chills, constipation, hematemesis, hematochezia, melena, hematuria, anorexia, syncope - Related Data Previous Rx's Medication Instructions Recorded Last Taken Type metFORMIN [Glucophage] 500 mg PO BID #60 tablet 03/22/22 Unknown Rx Allergies Allergy/AdvReac Type Severity Reaction Status Date / Time No Known Allergies Allergy Verified 06/28/19 08:58 ED Review of Systems ROS: Stated complaint: ABD PAIN/PAINFUL URINATION Other details as noted in HPI Comment: All other systems reviewed and negative ED Past Medical Hx - Past Medical History Previous Medical History?: Yes Hx Diabetes: Yes (Not on meds) - Surgical History Past Surgical History?: Yes Additional Surgical History: cleft pallet,tonsillectomy - Family History Family history: no significant - Social History Smoking Status: Never Smoker Substance Use Type: None - Medications Home Medications: Home Medications Medication Instructions Recorded Confirmed Last Taken Type metFORMIN [Glucophage] 500 mg PO BID #60 tablet 03/22/22 Unknown Rx ED Physical Exam - General Limitations: No Limitations General appearance: alert, in no apparent distress - Head Head exam: Present: atraumatic, normocephalic - Eye Eye exam: Present: normal appearance - ENT ENT exam: Present: mucous membranes moist - Neck Neck exam: Present: normal inspection - Respiratory Respiratory exam: Present: normal lung sounds bilaterally. Absent: respiratory distress - Cardiovascular Cardiovascular Exam: Present: regular rate, normal rhythm. Absent: systolic murmur, diastolic murmur, rubs, gallop - GI/Abdominal GI/Abdominal exam: Present: soft, normal bowel sounds - Extremities Exam Extremities exam: Present: normal inspection - Back Exam Back exam: Present: normal inspection - Neurological Exam Neurological exam: Present: alert, oriented X3 - Psychiatric Psychiatric exam: Present: normal affect, normal mood - Skin Skin exam: Present: warm, dry, intact, normal color. Absent: rash ED Course Vital Signs 03/22/22 03/22/22 04:40 09:27 Temperature 98.6 F 98.3 F Pulse Rate 110 H 69 Respiratory 16 18 Rate Blood Pressure 136/86 Blood Pressure 135/86 143/88 [Right] O2 Sat by Pulse 100 100 Oximetry ED Medical Decision Making - Lab Data Result diagrams: 03/22/22 08:40 03/22/22 08:40 - Medical Decision Making Lab Results 03/22/22 03/22/22 03/22/22 Range/Units 07:07 08:40 08:40 WBC 5.9 (4.5-11.0) K/mm3 RBC 4.66 (3.65-5.03) M/mm3 Hgb 14.7 H (10.1-14.3) gm/dl Hct 43.6 H (30.3-42.9) % MCV 94 (79-97) fl MCH 32 (28-32) pg MCHC 34 (30-34) % RDW 13.6 (13.2-15.2) % Plt Count 349 (140-440) K/mm3 VBG pH (7.320-7.420) Sodium 136 L (137-145) mmol/L Potassium 4.6 (3.6-5.0) mmol/L Chloride 97.9 L (98-107) mmol/L Carbon Dioxide 27 (22-30) mmol/L Anion Gap 16 mmol/L BUN 12 (7-17) mg/dL Creatinine 0.6 (0.6-1.2) mg/dL Estimated GFR > 60 ml/min BUN/Creatinine Ratio 20 % Glucose 339 H (65-100) mg/dL POC Glucose (70-105) mg/dL Ketones Quantitative (Negative) Calcium 9.5 (8.4-10.2) mg/dL Total Bilirubin 1.00 (0.1-1.2) mg/dL AST 20 (5-40) units/L ALT 32 (7-56) units/L Alkaline Phosphatase 87 (35-129) units/L Total Protein 7.9 (6.3-8.2) g/dL Albumin 4.5 (3.9-5) g/dL Albumin/Globulin Ratio 1.3 % Lipase 8 L (13-60) units/L Urine Color Straw (Yellow) Urine Turbidity Clear (Clear) Urine pH 6.0 (5.0-7.0) Ur Specific [place] 1.028 (1.003-1.030) Urine Protein <15 mg/dl (Negative) mg/dL Urine Glucose (UA) >=500 (Negative) mg/dL Urine Ketones Neg (Negative) mg/dL Urine Blood Neg (Negative) Urine Nitrite Neg (Negative) Urine Bilirubin Neg (Negative) Urine Urobilinogen < 2.0 (<2.0) mg/dL Ur Leukocyte Esterase Neg (Negative) Urine WBC (Auto) 1.0 (0.0-6.0) /HPF Urine RBC (Auto) < 1.0 (0.0-6.0) /HPF U Epithel Cells (Auto) 4.0 (0-13.0) /HPF Urine HCG, Qual Negative (Negative) 03/22/22 03/22/22 03/22/22 Range/Units 10:14 10:14 13:23 WBC (4.5-11.0) K/mm3 RBC (3.65-5.03) M/mm3 Hgb (10.1-14.3) gm/dl Hct (30.3-42.9) % MCV (79-97) fl MCH (28-32) pg MCHC (30-34) % RDW (13.2-15.2) % Plt Count (140-440) K/mm3 VBG pH 7.343 (7.320-7.420) Sodium (137-145) mmol/L Potassium (3.6-5.0) mmol/L Chloride (98-107) mmol/L Carbon Dioxide (22-30) mmol/L Anion Gap mmol/L BUN (7-17) mg/dL Creatinine (0.6-1.2) mg/dL Estimated GFR ml/min BUN/Creatinine Ratio % Glucose (65-100) mg/dL POC Glucose 241 H (70-105) mg/dL Ketones Quantitative Negative (Negative) Calcium (8.4-10.2) mg/dL Total Bilirubin (0.1-1.2) mg/dL AST (5-40) units/L ALT (7-56) units/L Alkaline Phosphatase (35-129) units/L Total Protein (6.3-8.2) g/dL Albumin (3.9-5) g/dL Albumin/Globulin Ratio % Lipase (13-60) units/L Urine Color (Yellow) Urine Turbidity (Clear) Urine pH (5.0-7.0) Ur Specific [place] (1.003-1.030) Urine Protein (Negative) mg/dL Urine Glucose (UA) (Negative) mg/dL Urine Ketones (Negative) mg/dL Urine Blood (Negative) Urine Nitrite (Negative) Urine Bilirubin (Negative) Urine Urobilinogen (<2.0) mg/dL Ur Leukocyte Esterase (Negative) Urine WBC (Auto) (0.0-6.0) /HPF Urine RBC (Auto) (0.0-6.0) /HPF U Epithel Cells (Auto) (0-13.0) /HPF Urine HCG, Qual (Negative) Vital Signs 03/22/22 03/22/22 04:40 09:27 Temperature 98.6 F 98.3 F Pulse Rate 110 H 69 Respiratory 16 18 Rate Blood Pressure 136/86 Blood Pressure 135/86 143/88 [Right] O2 Sat by Pulse 100 100 Oximetry Labs noted. No ketones in her serum. pH 7.34 UA noted Patient noted to be hyperglycemic. She was given 10 units of IV insulin by the nurse: Her fluids were not hung. Charge nurse aware. Patient was then given a liter of normal saline. Her blood sugar was rechecked and she was given an additional 5 units of regular insulin. Blood glucose checks are not crossing over from the Accu-Chek machine because the last patient's last blood glucose was 199 and that is not reflected in the EMR. This afternoon patient complaining that she is checking the nurses. That they are not checking her. Her and I discussed her blood sugars. They were ordered every hour. She has had 3 of them per the patient. Patient is extremely upset. I have informed her who the charge nurse is, Jen During patient's ER stay she has gone a total of 15 units of regular insulin and 2 L of normal saline. She is also been given Zofran. She has had no further nausea and vomiting after volume resuscitation. On discharge exam patient is ambulatory, she is texting on her phone, she is taking p.o. I have educated the patient on the importance of tight glycemic control with her diabetes. I have given her a prescription/refill of her metformin and PCP follow-up. INT removed by the KANU from the left hand. Nursing not available. Patient being discharged home with discharge plan of care including diet, activity, medications and follow-up. She verbalizes understanding of plan of care. - Differential Diagnosis Rule out UTI, URI, DKA, hyperglycemia, HH NK Critical care attestation.: If time is entered above; I have spent that time in minutes in the direct care of this critically ill patient, excluding procedure time. ED Disposition Clinical Impression: Hyperglycemia, Medical non-compliance Diabetes mellitus Qualifiers: Diabetes mellitus type: type 2 Diabetes mellitus truck terminal manager insulin use: without senior care use Disposition: 01 HOME / SELF CARE / HOMELESS Is pt being admited?: No Does the pt Need Aspirin: No Condition: Stable Instructions: Hyperglycemia, Type 2 Diabetes Mellitus, Self Care, Adult, Diabetes Mellitus Type 2 in Adults (ED), Abdominal Pain (ED) Additional Instructions: med as ordered today stay well hydrated with water follow up with pcp referral below Prescriptions: metFORMIN [Glucophage] 500 mg PO BID #60 tablet Referrals: MIGEL ROBLEDO MD [Primary Care Provider] - 3-5 Days Forms: Work/School Release Form(ED) Time of Disposition: 15:17
[2022-03-22 09:27] VITALS: BP 143/88
[2022-03-22] MEDS ORDERED: INSULIN REGULAR, HUMAN 100 UNITS/1 ML IV ONE ×2 (09:36→13:42)
[2022-03-22 10:40] LABS: Hematocrit 43.6 % (30.3-42.9); Hemoglobin 14.7 gm/dl (10.1-14.3); Mean Corpuscular HGB Conc 34 % (30-34); Mean Corpuscular Volume 94 fl (79-97); Platelet Count 349 K/mm3 (140-440); Red Blood Count 4.66 M/mm3 (3.65-5.03); Red Cell Distribution Width 13.6 % (13.2-15.2)
[2022-03-22 10:54] LABS: Alanine Aminotransferase 32 units/L (7-56); Albumin 4.5 g/dL (3.9-5); Blood Urea Nitrogen 12 mg/dL (7-17); Calcium 9.5 mg/dL (8.4-10.2); Hemolysis Index 3
[2022-03-22 11:06] LABS: BUN/Creatinine Ratio 20
[2022-03-22] MEDS ORDERED: SODIUM CHLORIDE 0.9% 1000 ML 1,000 ML IV ONE (11:21)
== END 2022-03-22 16:00 | disposition home or self-care (01) ==
LOC: ED 04:00
DX: E11.65 Type 2 diabetes mellitus with hyperglycemia (principal); Z91.14 Patient's other noncompliance with medication regimen; Z98.890 Other specified postprocedural states
CPT/HCPCS: 36415; 80053; 81001; 81025; 82010; 82805; 82962; 83690; 85027; 96361; 96374; 96375; 99284; J7030; Q9967; J1815

== ENCOUNTER 2022-04-11 01:08 | Emergency (ER) | payer SELFPAY ==
[2022-04-11] MEDS ORDERED: SODIUM CHLORIDE 0.9% 1000 ML 1,000 ML IV ONE ×2 (07:40→10:25)
[2022-04-11 08:18] LABS: Basophils % (Auto) 0.5 % (0.0-1.8); Eosinophils # (Auto) 0.1 K/mm3 (0.0-0.4); Eosinophils % (Auto) 1.7 % (0.0-4.3); Hematocrit 41.8 % (30.3-42.9); Hemoglobin 14.3 gm/dl (10.1-14.3); Lymphocytes # (Auto) 2.3 K/mm3 (1.2-5.4); Lymphocytes % (Auto) 33.2 % (13.4-35.0); Mean Corpuscular HGB Conc 34 % (30-34); Mean Corpuscular Volume 93 fl (79-97); Monocytes # (Auto) 0.5 K/mm3 (0.0-0.8); Monocytes % (Auto) 7.6 % (0.0-7.3); Platelet Count 338 K/mm3 (140-440); Red Blood Count 4.49 M/mm3 (3.65-5.03); Red Cell Distribution Width 13.1 % (13.2-15.2)
[2022-04-11 08:41] LABS: Alanine Aminotransferase 26 units/L (7-56); Albumin 4.3 g/dL (3.9-5); Blood Urea Nitrogen 9 mg/dL (7-17); Hemolysis Index 3
--- NOTE | 2022-04-11 08:56 | Emergency Department Report ---
ED General Adult HPI - General Chief complaint: Hyperglycemia Stated complaint: HYPERGLYCEMIA Time Seen by Provider: 04/11/22 07:40 Source: patient Mode of arrival: Ambulatory Limitations: No Limitations - History of Present Illness Initial comments: This is a 26-year-old female nontoxic, well nourished in appearance, no acute signs of distress presents to the ED with c/o of hyperglycemia. Patient stated she is currently diagnosed with diabetes type 2 and has been taking metformin consistently. Patient stated that the past few days she has been taking her fingerstick was roughly about 400s. Otherwise patient denies any symptoms or complaints. Denies any chest pain, shortness of breath, fever, chills, nausea, vomiting, abdominal pain or flank pain. Denies any allergies. -: days(s) Severity scale (0 -10): 0 Improves with: none Worsens with: none Associated Symptoms: denies other symptoms. denies: confusion, chest pain, cough, diaphoresis, fever/chills, headaches, loss of appetite, malaise, nausea/vomiting, rash, seizure, shortness of breath, syncope, weakness Treatments Prior to Arrival: none - Related Data Previous Rx's Medication Instructions Recorded Last Taken Type metFORMIN [Glucophage] 500 mg PO BID #60 tablet 03/22/22 Unknown Rx Allergies Allergy/AdvReac Type Severity Reaction Status Date / Time No Known Allergies Allergy Verified 06/28/19 08:58 ED Review of Systems ROS: Stated complaint: HYPERGLYCEMIA Other details as noted in HPI Comment: All other systems reviewed and negative Constitutional: denies: chills, fever Eyes: denies: eye pain, eye discharge, vision change ENT: denies: ear pain, throat pain Respiratory: denies: cough, shortness of breath, wheezing Cardiovascular: denies: chest pain, palpitations Endocrine: no symptoms reported Gastrointestinal: denies: abdominal pain, nausea, diarrhea Genitourinary: denies: urgency, dysuria, discharge Musculoskeletal: denies: back pain, joint swelling, arthralgia Skin: denies: rash, lesions Neurological: denies: headache, weakness, paresthesias Psychiatric: denies: anxiety, depression Hematological/Lymphatic: denies: easy bleeding, easy bruising ED Past Medical Hx - Past Medical History Hx Diabetes: Yes (Not on meds) - Surgical History Additional Surgical History: cleft pallet,tonsillectomy - Social History Smoking Status: Never Smoker Substance Use Type: None - Medications Home Medications: Home Medications Medication Instructions Recorded Confirmed Last Taken Type metFORMIN [Glucophage] 500 mg PO BID #60 tablet 03/22/22 Unknown Rx ED Physical Exam - General Limitations: No Limitations General appearance: alert, in no apparent distress - Head Head exam: Present: atraumatic, normocephalic - Eye Eye exam: Present: normal appearance - Neck Neck exam: Present: normal inspection, full ROM. Absent: lymphadenopathy - Respiratory Respiratory exam: Present: normal lung sounds bilaterally. Absent: respiratory distress, wheezes, rales, rhonchi, stridor, accessory muscle use, decreased breath sounds, prolonged expiratory - Cardiovascular Cardiovascular Exam: Present: regular rate, normal rhythm, normal heart sounds. Absent: bradycardia, tachycardia, irregular rhythm, systolic murmur, diastolic murmur, rubs, gallop - GI/Abdominal GI/Abdominal exam: Present: soft, normal bowel sounds. Absent: distended, tenderness, guarding, rebound, rigid, diminished bowel sounds - Extremities Exam Extremities exam: Present: normal inspection, full ROM, normal capillary refill. Absent: tenderness - Back Exam Back exam: Present: normal inspection, full ROM. Absent: tenderness, CVA tenderness (R), CVA tenderness (L), muscle spasm, paraspinal tenderness, vertebral tenderness, rash noted - Neurological Exam Neurological exam: Present: alert, oriented X3, normal gait - Psychiatric Psychiatric exam: Present: normal affect, normal mood - Skin Skin exam: Present: warm, dry, intact, normal color. Absent: rash ED Course Vital Signs 04/11/22 04/11/22 04/11/22 03:27 08:09 08:16 Temperature 98.4 F 97.8 F 97.9 F Pulse Rate 89 82 77 Respiratory 18 20 20 Rate Blood Pressure 148/93 143/103 Blood Pressure 143/103 [Left] O2 Sat by Pulse 98 98 99 Oximetry - Reevaluation(s) Reevaluation #1: 04/11/22 08:55 Patient is speaking in full sentences with no signs of distress noted. ED Medical Decision Making - Lab Data Result diagrams: 04/11/22 07:52 04/11/22 07:52 Lab Results 04/11/22 04/11/22 04/11/22 Range/Units 03:31 07:52 07:52 WBC 6.8 (4.5-11.0) K/mm3 RBC 4.49 (3.65-5.03) M/mm3 Hgb 14.3 (10.1-14.3) gm/dl Hct 41.8 (30.3-42.9) % MCV 93 (79-97) fl MCH 32 (28-32) pg MCHC 34 (30-34) % RDW 13.1 L (13.2-15.2) % Plt Count 338 (140-440) K/mm3 Lymph % (Auto) 33.2 (13.4-35.0) % [place] % (Auto) 7.6 H (0.0-7.3) % Eos % (Auto) 1.7 (0.0-4.3) % Baso % (Auto) 0.5 (0.0-1.8) % Lymph # (Auto) 2.3 (1.2-5.4) K/mm3 [place] # (Auto) 0.5 (0.0-0.8) K/mm3 Eos # (Auto) 0.1 (0.0-0.4) K/mm3 Baso # (Auto) 0.0 (0.0-0.1) K/mm3 Seg Neutrophils % 57.0 (40.0-70.0) % Seg Neutrophils # 3.9 (1.8-7.7) K/mm3 VBG pH (7.320-7.420) Sodium 135 L (137-145) mmol/L Potassium 4.1 (3.6-5.0) mmol/L Chloride 98.7 (98-107) mmol/L Carbon Dioxide 26 (22-30) mmol/L Anion Gap 14 mmol/L BUN 9 (7-17) mg/dL Creatinine 0.5 L (0.6-1.2) mg/dL Estimated GFR > 60 ml/min BUN/Creatinine Ratio 18 % Glucose 315 H (65-100) mg/dL POC Glucose 357 H (70-105) mg/dL Calcium 9.0 (8.4-10.2) mg/dL Total Bilirubin 0.80 (0.1-1.2) mg/dL AST 16 (5-40) units/L ALT 26 (7-56) units/L Alkaline Phosphatase 81 (35-129) units/L Total Protein 7.3 (6.3-8.2) g/dL Albumin 4.3 (3.9-5) g/dL Albumin/Globulin Ratio 1.4 % HCG, Qual (Negative) Urine Color (Yellow) Urine Turbidity (Clear) Urine pH (5.0-7.0) Ur Specific [place] (1.003-1.030) Urine Protein (Negative) mg/dL Urine Glucose (UA) (Negative) mg/dL Urine Ketones (Negative) mg/dL Urine Blood (Negative) Urine Nitrite (Negative) Urine Bilirubin (Negative) Urine Urobilinogen (<2.0) mg/dL Ur Leukocyte Esterase (Negative) Urine WBC (Auto) (0.0-6.0) /HPF Urine RBC (Auto) (0.0-6.0) /HPF 04/11/22 04/11/22 04/11/22 Range/Units 07:52 07:52 08:08 WBC (4.5-11.0) K/mm3 RBC (3.65-5.03) M/mm3 Hgb (10.1-14.3) gm/dl Hct (30.3-42.9) % MCV (79-97) fl MCH (28-32) pg MCHC (30-34) % RDW (13.2-15.2) % Plt Count (140-440) K/mm3 Lymph % (Auto) (13.4-35.0) % [place] % (Auto) (0.0-7.3) % Eos % (Auto) (0.0-4.3) % Baso % (Auto) (0.0-1.8) % Lymph # (Auto) (1.2-5.4) K/mm3 [place] # (Auto) (0.0-0.8) K/mm3 Eos # (Auto) (0.0-0.4) K/mm3 Baso # (Auto) (0.0-0.1) K/mm3 Seg Neutrophils % (40.0-70.0) % Seg Neutrophils # (1.8-7.7) K/mm3 VBG pH 7.347 (7.320-7.420) Sodium (137-145) mmol/L Potassium (3.6-5.0) mmol/L Chloride (98-107) mmol/L Carbon Dioxide (22-30) mmol/L Anion Gap mmol/L BUN (7-17) mg/dL Creatinine (0.6-1.2) mg/dL Estimated GFR ml/min BUN/Creatinine Ratio % Glucose (65-100) mg/dL POC Glucose 285 H (70-105) mg/dL Calcium (8.4-10.2) mg/dL Total Bilirubin (0.1-1.2) mg/dL AST (5-40) units/L ALT (7-56) units/L Alkaline Phosphatase (35-129) units/L Total Protein (6.3-8.2) g/dL Albumin (3.9-5) g/dL Albumin/Globulin Ratio % HCG, Qual Negative (Negative) Urine Color (Yellow) Urine Turbidity (Clear) Urine pH (5.0-7.0) Ur Specific [place] (1.003-1.030) Urine Protein (Negative) mg/dL Urine Glucose (UA) (Negative) mg/dL Urine Ketones (Negative) mg/dL Urine Blood (Negative) Urine Nitrite (Negative) Urine Bilirubin (Negative) Urine Urobilinogen (<2.0) mg/dL Ur Leukocyte Esterase (Negative) Urine WBC (Auto) (0.0-6.0) /HPF Urine RBC (Auto) (0.0-6.0) /HPF 04/11/22 04/11/22 04/11/22 Range/Units 10:13 11:46 Unknown WBC (4.5-11.0) K/mm3 RBC (3.65-5.03) M/mm3 Hgb (10.1-14.3) gm/dl Hct (30.3-42.9) % MCV (79-97) fl MCH (28-32) pg MCHC (30-34) % RDW (13.2-15.2) % Plt Count (140-440) K/mm3 Lymph % (Auto) (13.4-35.0) % [place] % (Auto) (0.0-7.3) % Eos % (Auto) (0.0-4.3) % Baso % (Auto) (0.0-1.8) % Lymph # (Auto) (1.2-5.4) K/mm3 [place] # (Auto) (0.0-0.8) K/mm3 Eos # (Auto) (0.0-0.4) K/mm3 Baso # (Auto) (0.0-0.1) K/mm3 Seg Neutrophils % (40.0-70.0) % Seg Neutrophils # (1.8-7.7) K/mm3 VBG pH (7.320-7.420) Sodium (137-145) mmol/L Potassium (3.6-5.0) mmol/L Chloride (98-107) mmol/L Carbon Dioxide (22-30) mmol/L Anion Gap mmol/L BUN (7-17) mg/dL Creatinine (0.6-1.2) mg/dL Estimated GFR ml/min BUN/Creatinine Ratio % Glucose (65-100) mg/dL POC Glucose 308 H 305 H (70-105) mg/dL Calcium (8.4-10.2) mg/dL Total Bilirubin (0.1-1.2) mg/dL AST (5-40) units/L ALT (7-56) units/L Alkaline Phosphatase (35-129) units/L Total Protein (6.3-8.2) g/dL Albumin (3.9-5) g/dL Albumin/Globulin Ratio % HCG, Qual (Negative) Urine Color Yellow (Yellow) Urine Turbidity Clear (Clear) Urine pH 6.0 (5.0-7.0) Ur Specific [place] 1.032 H (1.003-1.030) Urine Protein <15 mg/dl (Negative) mg/dL Urine Glucose (UA) >=500 (Negative) mg/dL Urine Ketones Neg (Negative) mg/dL Urine Blood Neg (Negative) Urine Nitrite Neg (Negative) Urine Bilirubin Neg (Negative) Urine Urobilinogen < 2.0 (<2.0) mg/dL Ur Leukocyte Esterase Neg (Negative) Urine WBC (Auto) < 1.0 (0.0-6.0) /HPF Urine RBC (Auto) < 1.0 (0.0-6.0) /HPF - Medical Decision Making 26-year-old female that presents with hyperglycemia. Patient is stable and was examined by me. Patient received 1 L normal saline. Blood sugar decreased prior to discharge. Vital signs are stable at discharge. Labs does not show diabetic ketoacidosis. Patient educated on hyperglycemia and risk factors for worsening hyperglycemia. Patient was instructed to follow-up with a primary care doctor in 3-5 days or if symptoms worsen and continue return to emergency room as soon as possible. At time of discharge, the patient does not seem toxic or ill in appearance. No acute signs of distress noted. Patient agrees to discharge treatment plan of care. No further questions noted by the patient. Critical care attestation.: If time is entered above; I have spent that time in minutes in the direct care of this critically ill patient, excluding procedure time. ED Disposition Clinical Impression: Hyperglycemia Disposition: 01 HOME / SELF CARE / HOMELESS Is pt being admited?: No Does the pt Need Aspirin: No Condition: Stable Instructions: Hyperglycemia, [id number] Additional Instructions: Follow-up with a primary care doctor in 3-5 days or if symptoms worsen and continue return to emergency room as soon as possible. Referrals: PRIMARY FITO, [Primary Care Provider] - 3-5 Days MIGEL ROBLEDO MD [Staff Physician] - 3-5 Days Time of Disposition: 11:49
[2022-04-11 08:57] LABS: Bilirubin,Urine NEG (Negative); Blood,Urine NEG (Negative); Color,Urine Yellow (Yellow); Protein,Urine <15 mg/dL mg/dL (Negative); Urobilinogen,Urine < 2.0 mg/dL (<2.0)
[2022-04-11 09:03] LABS: RBC,Urine < 1.0 /HPF (0.0-6.0); WBC,Urine < 1.0 /HPF (0.0-6.0)
[2022-04-11 09:14] LABS: BUN/Creatinine Ratio 18
[2022-04-11 12:32] VITALS: BP 141/82
== END 2022-04-11 12:30 | disposition home or self-care (01) ==
LOC: ED 01:08
DX: E11.65 Type 2 diabetes mellitus with hyperglycemia (principal)
CPT/HCPCS: 36415; 80053; 81001; 82805; 82962; 84703; 85025; 96360; 96361; 99284; J7030

== ENCOUNTER 2022-06-03 09:36 | Emergency (ER) | payer SELFPAY ==
--- NOTE | 2022-06-03 10:06 | Event Note ---
ED Screening Note Date of service: 06/03/22 Time: 10:02 ED Screening Note: This initial assessment/diagnostic orders/clinical plan/treatment(s) is/are subject to change based on patients health status, clinical progression and re- assessment by fellow clinical providers in the ED. Further treatment and workup at subsequent clinical providers discretion. Patient/guardian urged not to elope from the ED as their condition may be serious if not clinically assessed and managed. Diabetic with pelvic poain for 2 days,.No fever, urinary or bowel Sx. No vaginal bleeding or d/c. Sugar 300 this am. Initial orders include: My Active Orders 06/03/22 10:00 Basic Metabolic Panel Stat Complete Blood Count Auto Diff Stat HCG Qualitative, Serum Stat Urinalysis Complete Stat
--- NOTE | 2022-06-03 10:48 | Emergency Department Report ---
ED Abdominal Pain HPI - General Chief Complaint: Abdominal Pain Stated Complaint: ABD PAIN PUI?: No Time Seen by Provider: 06/03/22 10:47 Source: patient Mode of arrival: Ambulatory Limitations: No Limitations - History of Present Illness Initial Comments: Ms DELAROSA is a 27-year-old female that comes to the ER with suprapubic pain. She has no discharge. She is currently on her period. She denies nausea vomiting diarrhea. Patient is diabetic and on metformin. Patient is ambulatory, nontoxic [id number] on arrival to the ER. MD Complaint: abdominal pain -: Gradual, days(s) Location: suprapubic Radiation: none Severity scale (0 -10): 4 Quality: aching Consistency: intermittent Improves With: nothing Worsens With: nothing Associated Symptoms: denies other symptoms. denies: nausea, vomiting, diarrhea, fever, chills, constipation, dysuria, hematemesis, hematochezia, melena, hematuria, anorexia, syncope - Related Data Previous Rx's Medication Instructions Recorded Last Taken Type metFORMIN [Glucophage] 500 mg PO BID #60 tablet 03/22/22 Unknown Rx Allergies Allergy/AdvReac Type Severity Reaction Status Date / Time No Known Allergies Allergy Verified 06/28/19 08:58 ED Review of Systems ROS: Stated complaint: ABD PAIN Other details as noted in HPI Comment: All other systems reviewed and negative ED Past Medical Hx - Past Medical History Previous Medical History?: Yes Hx Diabetes: Yes Additional medical history: Obesity - Surgical History Past Surgical History?: Yes Additional Surgical History: cleft pallet,tonsillectomy - Family History Family history: no significant - Social History Smoking Status: Never Smoker Substance Use Type: None - Medications Home Medications: Home Medications Medication Instructions Recorded Confirmed Last Taken Type metFORMIN [Glucophage] 500 mg PO BID #60 tablet 03/22/22 Unknown Rx ED Physical Exam - General Limitations: No Limitations General appearance: alert, in no apparent distress - Head Head exam: Present: atraumatic, normocephalic - Eye Eye exam: Present: normal appearance, PERRL, EOMI - ENT ENT exam: Present: mucous membranes moist - Neck Neck exam: Present: normal inspection - Respiratory Respiratory exam: Present: normal lung sounds bilaterally. Absent: respiratory distress - Cardiovascular Cardiovascular Exam: Present: regular rate, normal rhythm. Absent: systolic murmur, diastolic murmur, rubs, gallop - GI/Abdominal GI/Abdominal exam: Present: soft, normal bowel sounds, other. Absent: distended, tenderness, guarding, rebound, rigid, diminished bowel sounds - Extremities Exam Extremities exam: Present: normal inspection - Back Exam Back exam: Present: normal inspection - Neurological Exam Neurological exam: Present: alert, oriented X3 - Psychiatric Psychiatric exam: Present: normal affect, normal mood - Skin Skin exam: Present: warm, dry, intact, normal color. Absent: rash ED Course Vital Signs 06/03/22 09:59 Temperature 98.5 F Pulse Rate 84 Respiratory 16 Rate Blood Pressure 141/91 [Right] O2 Sat by Pulse 98 Oximetry ED Medical Decision Making - Lab Data Result diagrams: 06/03/22 10:03 06/03/22 10:03 - Medical Decision Making Vital Signs 06/03/22 09:59 Temperature 98.5 F Pulse Rate 84 Respiratory 16 Rate Blood Pressure 141/91 [Right] O2 Sat by Pulse 98 Oximetry Lab Results 06/03/22 06/03/22 06/03/22 Range/Units 10:03 10:03 10:03 WBC 6.1 (4.5-11.0) K/mm3 RBC 4.66 (3.65-5.03) M/mm3 Hgb 14.4 H (10.1-14.3) gm/dl Hct 43.6 H (30.3-42.9) % MCV 94 (79-97) fl MCH 31 (28-32) pg MCHC 33 (30-34) % RDW 13.7 (13.2-15.2) % Plt Count 335 (140-440) K/mm3 Lymph % (Auto) 32.0 (13.4-35.0) % [place] % (Auto) 6.6 (0.0-7.3) % Eos % (Auto) 0.7 (0.0-4.3) % Baso % (Auto) 0.3 (0.0-1.8) % Lymph # (Auto) 2.0 (1.2-5.4) K/mm3 [place] # (Auto) 0.4 (0.0-0.8) K/mm3 Eos # (Auto) 0.0 (0.0-0.4) K/mm3 Baso # (Auto) 0.0 (0.0-0.1) K/mm3 Seg Neutrophils % 60.4 (40.0-70.0) % Seg Neutrophils # 3.7 (1.8-7.7) K/mm3 Sodium 139 (137-145) mmol/L Potassium 4.6 (3.6-5.0) mmol/L Chloride 98.7 (98-107) mmol/L Carbon Dioxide 26 (22-30) mmol/L Anion Gap 19 mmol/L BUN 12 (7-17) mg/dL Creatinine 0.6 (0.6-1.2) mg/dL Estimated GFR > 60 ml/min BUN/Creatinine Ratio 20 % Glucose 362 H (65-100) mg/dL Calcium 9.2 (8.4-10.2) mg/dL HCG, Qual Negative (Negative) Urine Color (Yellow) Urine Turbidity (Clear) Urine pH (5.0-7.0) Ur Specific [place] (1.003-1.030) Urine Protein (Negative) mg/dL Urine Glucose (UA) (Negative) mg/dL Urine Ketones (Negative) mg/dL Urine Blood (Negative) Urine Nitrite (Negative) Urine Bilirubin (Negative) Urine Urobilinogen (<2.0) mg/dL Ur Leukocyte Esterase (Negative) Urine WBC (Auto) (0.0-6.0) /HPF Urine RBC (Auto) (0.0-6.0) /HPF U Epithel Cells (Auto) (0-13.0) /HPF Urine Mucus /HPF 06/03/22 Range/Units 11:23 WBC (4.5-11.0) K/mm3 RBC (3.65-5.03) M/mm3 Hgb (10.1-14.3) gm/dl Hct (30.3-42.9) % MCV (79-97) fl MCH (28-32) pg MCHC (30-34) % RDW (13.2-15.2) % Plt Count (140-440) K/mm3 Lymph % (Auto) (13.4-35.0) % [place] % (Auto) (0.0-7.3) % Eos % (Auto) (0.0-4.3) % Baso % (Auto) (0.0-1.8) % Lymph # (Auto) (1.2-5.4) K/mm3 [place] # (Auto) (0.0-0.8) K/mm3 Eos # (Auto) (0.0-0.4) K/mm3 Baso # (Auto) (0.0-0.1) K/mm3 Seg Neutrophils % (40.0-70.0) % Seg Neutrophils # (1.8-7.7) K/mm3 Sodium (137-145) mmol/L Potassium (3.6-5.0) mmol/L Chloride (98-107) mmol/L Carbon Dioxide (22-30) mmol/L Anion Gap mmol/L BUN (7-17) mg/dL Creatinine (0.6-1.2) mg/dL Estimated GFR ml/min BUN/Creatinine Ratio % Glucose (65-100) mg/dL Calcium (8.4-10.2) mg/dL HCG, Qual (Negative) Urine Color Straw (Yellow) Urine Turbidity Clear (Clear) Urine pH 5.0 (5.0-7.0) Ur Specific [place] 1.028 (1.003-1.030) Urine Protein <15 mg/dl (Negative) mg/dL Urine Glucose (UA) >=500 (Negative) mg/dL Urine Ketones Neg (Negative) mg/dL Urine Blood Lg (Negative) Urine Nitrite Neg (Negative) Urine Bilirubin Neg (Negative) Urine Urobilinogen < 2 (<2.0) mg/dL Ur Leukocyte Esterase Neg (Negative) Urine WBC (Auto) < 1.0 (0.0-6.0) /HPF Urine RBC (Auto) 1.0 (0.0-6.0) /HPF U Epithel Cells (Auto) 1.0 (0-13.0) /HPF Urine Mucus Few /HPF Urine noted. PreGnegative. Labs noted. Blood sugar elevated over 300. 2 L of normal saline with 8 of IV insulin Blood sugar then downtrending. Vital signs remained stable. No fever. No hypotension or tachycardia. Abdominal exam is benign. I have shared the above findings with patient. She states that she has been under a lot of stress lately. She is taking her metformin as instructed. Discharge exam patient is taking p.o. ambulatory and in no acute distress. Vital signs of remained stable during ER visit Patient is being discharged home with discharge plan of care. She understands she needs to follow-up with PCP. Have given her referrals. She is to continue her metformin. She understands follow-up, diet activity hydration and medications. Last blood sugar was 187 per nursing staff. - Differential Diagnosis RO PREG/UTI/DKA Critical care attestation.: If time is entered above; I have spent that time in minutes in the direct care of this critically ill patient, excluding procedure time. ED Disposition Clinical Impression: Diabetes mellitus with hyperglycemia, Obesity Disposition: HOME / SELF CARE / HOMELESS Is pt being admited?: No Does the pt Need Aspirin: No Condition: Stable Instructions: Hyperglycemia, Diabetes Mellitus Type 2 in Adults (ED), Abdominal Pain (ED) Additional Instructions: Monitor your blood glucose. Take medications as instructed. Drink a lot of water. Diabetic diet. Follow-up with PCP. Have given you referral below. Activity as tolerated [id number] Motrin or Tylenol for pain Referrals: MIGEL ROBLEDO MD [Primary Care Provider] - 3-5 Days Forms: Work/School Release Form(ED) Time of Disposition: 15:39
[2022-06-03 11:47] LABS: Bilirubin,Urine NEG (Negative); Blood,Urine LG (Negative); Color,Urine Straw (Yellow); Protein,Urine <15 mg/dL mg/dL (Negative)
[2022-06-03 11:49] LABS: Mucus,Urine FEW /HPF; Urobilinogen,Urine < 2 mg/dL (<2.0)
[2022-06-03 11:50] LABS: Basophils % (Auto) 0.3 % (0.0-1.8); Eosinophils % (Auto) 0.7 % (0.0-4.3); Hematocrit 43.6 % (30.3-42.9); Hemoglobin 14.4 gm/dl (10.1-14.3); Mean Corpuscular HGB Conc 33 % (30-34); Mean Corpuscular Volume 94 fl (79-97); Monocytes # (Auto) 0.4 K/mm3 (0.0-0.8); Monocytes % (Auto) 6.6 % (0.0-7.3); Platelet Count 335 K/mm3 (140-440); Red Blood Count 4.66 M/mm3 (3.65-5.03); Red Cell Distribution Width 13.7 % (13.2-15.2)
[2022-06-03 11:59] LABS: WBC,Urine < 1.0 /HPF (0.0-6.0)
[2022-06-03 12:15] LABS: Blood Urea Nitrogen 12 mg/dL (7-17); Calcium 9.2 mg/dL (8.4-10.2); Hemolysis Index 4
[2022-06-03] MEDS ORDERED: SODIUM CHLORIDE 0.9% 1000 ML 1,000 ML IV ONE (12:18)
[2022-06-03] MEDS ORDERED: INSULIN REGULAR, HUMAN 100 UNITS/1 ML IV ONE (12:18)
[2022-06-03 12:19] LABS: BUN/Creatinine Ratio 20
[2022-06-03 16:03] VITALS: BP 140/80
== END 2022-06-03 16:02 | disposition home or self-care (01) ==
LOC: ED 09:36
DX: E11.65 Type 2 diabetes mellitus with hyperglycemia (principal); E66.9 Obesity, unspecified
CPT/HCPCS: 36415; 80048; 81001; 82010; 82962; 84703; 85025; 96361; 96374; 99283; J7030; Q9967; J1815